=== PATIENT | female | born 1995 | race Caucasian/White ===

== ENCOUNTER 2019-01-08 17:19 | Emergency (ER) | payer OTHER ==
[~2019-01-08] VITALS: Ht 167.6 cm; Wt 63.5 kg
[2019-01-08] MEDS ORDERED: IBUPROFEN 600 MG TABLET PO ONE ×2 (18:00→18:12)
[2019-01-08 19:05] VITALS: BP 118/70
--- NOTE | 2019-01-08 19:06 | NUR ---
Patient discharged to home in stable condition. Written and verbal after care instructions given. Patient verbalizes understanding of instruction.
== END 2019-01-08 19:06 | disposition home or self-care (01) ==
LOC: ER 17:19
DX: M94.0 Chondrocostal junction syndrome [Tietze] (principal); F17.200 Nicotine dependence, unspecified, uncomplicated
CPT/HCPCS: 71045-TC

== ENCOUNTER 2020-07-27 19:00 | Emergency (ER) | payer MEDICAID, OTHER ==
[~2020-07-27] VITALS: Ht 167.6 cm; Wt 60.8 kg
--- NOTE | 2020-07-27 19:00 | NUR ---
PT BIBRA 860 AND [employer] C/O SI MULTIPLE CUTS ON THE WRIST AND FOREARM. PT IS AAOX4, NOT IN RESPIRATORY DISTRESS, V/S STABLE, KEPT RESTED AND COMFORTABLE. SITTER AT BEDSIDE. WILL CONTINUE TO MONITOR.
--- NOTE | 2020-07-27 19:01 | NUR ---
OFFICER SHAMIKA #[id number] AND OFFICER RAJIV #[id number] OF [employer] ACCOMPANIED PATIENT GOING TO ED
--- NOTE | 2020-07-27 19:02 | NUR ---
PATIENT FROM HOME (BUNNY), MOTHER CALLED [employer] AND 911.
--- NOTE | 2020-07-27 19:06 | NUR ---
SUICIDAL PRECAUTIONS APPLIED
--- NOTE | 2020-07-27 19:20 | NUR ---
INVESTMENT CONSULTANT DEGRASSE AT BEDSIDE FOR EVAL
--- NOTE | 2020-07-27 19:29 | NUR ---
5150 HOLD BY [facility] FOR DTS
--- NOTE | 2020-07-27 19:36 | NUR ---
REPORT GIVEN TO CHANTEL GOLDSMITH FOR [facility]
--- NOTE | 2020-07-27 20:03 | NUR ---
urine collected and sent to lab
[2020-07-27 20:05] LABS: BASOPHILS % (AUTO) 0.1 % (0.0-2.0); EOSINOPHILS % (AUTO) 0.1 % (0.0-6.0); HEMATOCRIT 41 % (33-45); HEMOGLOBIN 13.5 g/dL (11.5-14.8); LYMPHOCYTES # (AUTO) 1.6 /CMM (0.8-4.8); LYMPHOCYTES % (AUTO) 24.5 % (20.0-44.0); MEAN CORPUSCULAR HGB CONC 33 g/dl (31.0-36.0); MEAN CORPUSCULAR VOLUME 93 fL (82-100); MONOCYTES # (AUTO) 0.2 /CMM (0.1-1.30); MONOCYTES % (AUTO) 3.6 % (2.0-12.0); NEUTROPHILS # (AUTO) 4.6 /CMM (1.8-8.9); NEUTROPHILS % (AUTO) 71.7 % (43.0-81.0); PLATELET COUNT (AUTO) 347 /CMM (150-450); RED BLOOD CELL COUNT(AUTO) 4.35 MIL/uL (4.0-5.2); WHITE BLOOD COUNT (AUTO) 6.4 K/uL (4.3-11.0)
--- NOTE | 2020-07-27 20:09 | NUR ---
Demi Peace- Mother [phone]
[2020-07-27 20:12] LABS: ALANINE AMINOTRANSFERASE 35 U/L (12-78); ALCOHOL, BLOOD 151 mg/dL (0-0); ALKALINE PHOSPHATASE 61 U/L (46-116); ASPARTATE AMINOTRANSFERASE 28 U/L (15-37); BILIRUBIN,DIRECT 0.1 mg/dL (0.0-0.2); BILIRUBIN,TOTAL 0.3 mg/dL (0.2-1.0); CALCIUM, SERUM 8.8 mg/dL (8.5-10.1); CARBON DIOXIDE 25 mmol/L (21-32); CHLORIDE 108 mmol/L (98-107); CREATININE 0.7 mg/dL (0.6-1.3); GLUCOSE 85 mg/dL (74-106); POTASSIUM 3.4 mmol/L (3.5-5.1); SODIUM SERUM 146 mmol/L (136-145); TOTAL PROTEIN, SERUM 8.4 g/dL (6.4-8.2); UREA NITROGEN, BLOOD 8 mg/dL (7-18)
[2020-07-27 20:20] LABS: ACETAMINOPHEN < 2 ug/ml (10-30)
[2020-07-27 20:30] LABS: BILIRUBIN,URINE NEGATIVE (NEGATIVE); COLOR,URINE YELLOW (YELLOW); LEUKOCYTE ESTERASE ,URINE NEGATIVE (NEGATIVE); NITRITE, URINE NEGATIVE (NEGATIVE); PH,URINE 5.5 (5.0-8.0); PROTEIN,URINE NEGATIVE (NEGATIVE); UGLUCOSE NEGATIVE (NEGATIVE); UROBILINOGEN,URINE 0.2 EU/dL (0.2)
[2020-07-27 20:38] LABS: BACTERIA,URINE None seen /HPF (None Seen); RBC,URINE 0-2 /HPF (0-2); SQUAMOUS EPITHELIAL CELL,UR 0-2 /HPF (None Seen); WBC,URINE 0-2 /HPF (0-3)
[2020-07-27] MEDS ORDERED: LORAZEPAM INJ 2 MG/ML VIAL ONE (20:55)
[2020-07-27] MEDS ORDERED: OLANZAPINE 10 MG VIAL IM ONE ×2 (20:55→21:00)
[2020-07-27] MEDS ORDERED: diphenhydrAMINE HCL 50 MG/ML VIAL ONE (20:55)
[2020-07-27] MEDS ORDERED: diphenhydrAMINE HCL 50 MG/ML VIAL IM ONE (21:00)
[2020-07-27] MEDS ORDERED: LORAZEPAM 1 MG TABLET PO ONE (21:00)
[2020-07-27] MEDS ORDERED: LORAZEPAM INJ 2 MG/ML VIAL IM ONE (21:00)
--- NOTE | 2020-07-27 21:03 | NUR ---
PT BECAME AGITATED UPON TALKING TO WORK DISTRIBUTOR, PT STARTED BEING VERBALLY ABUSIVE AT SITTER, CAME TO ROOM, PT STARTED KICKING STAFF. CALLED FOR HELP AT THIS TIME, PT KEPT KICKING AND SCREAMING AT MULTIPLE STAFFM, WAS ORDERED TO BE IN 4 POINT RESTRAINTS AT THIS TIME WITH DIFFICULTY, MEDS ORDERED BY DR BONE.
--- NOTE | 2020-07-27 23:56 | NUR ---
PT ACCEPTED AT: [facility] [id number] [facility] [id number] ROOM WILL BE ASSIGNED AFTER REPORT
--- NOTE | 2020-07-27 23:59 | NUR ---
[facility] ambulance called. ETA 30 minutes.
--- NOTE | 2020-07-28 00:02 | NUR ---
SPOKE TO LUC (MOTHER) UPDATED RE: PT'S DISPOSITION. AWARE OF TRANSFER TO [facility]
--- NOTE | 2020-07-28 00:12 | NUR ---
RN NOT READY FOR REPORT, CALL BACK IN 15MINS. SHERIF WILL BE TAKING REPORT.
[2020-07-28 00:28] VITALS: BP 110/54
--- NOTE | 2020-07-28 00:40 | NUR ---
REPORT GIVEN TO SHERIF GUTIERREZ AT [facility]
--- NOTE | 2020-07-28 00:51 | NUR ---
PT LEFT VIA PRIVATE AMBULANCE. PT CALM AND COOPERATIVE. LEFT IN STABLE CONDITION. NAD. ALL BELONGINGS GIVEN TO TRANSPORT.
== END 2020-07-28 00:51 ==
LOC: ER 19:02
DX: R45.851 Suicidal ideations (principal); S61.512A Laceration without foreign body of left wrist, initial encounter; X78.1XXA Intentional self-harm by knife, initial encounter; Y92.89 Other specified places as the place of occurrence of the external cause; F19.10 Other psychoactive substance abuse, uncomplicated; Z72.0 Tobacco use; R45.1 Restlessness and agitation; Z20.822 Contact with and (suspected) exposure to COVID-19
CPT/HCPCS: 36415; 80048; 80076; 80299; 80307; 80320; 81001; 84703; 85025; 87426; 96372 ×2; 99285; C9803; J1200; J2060; J3490; G0480